=== PATIENT | male | born 1970 | race African-American/Black ===

== ENCOUNTER 2018-04-13 07:55 | Emergency (ER) | payer OTHER ==
[2018-04-13] MEDS ORDERED: SODIUM BICARBONATE 8.4% INJ 50ML SYRINGE ONE (08:03)
== END 2018-04-13 09:14 | disposition expired ==
LOC: ER 07:55 → EDBD 07:55 → ER 09:14
DX: I46.9 Cardiac arrest, cause unspecified (principal); R41.82 Altered mental status, unspecified
CPT/HCPCS: 31500; 92950; 99291